=== PATIENT | male | born 1970 | race Caucasian/White ===

== ENCOUNTER 2017-09-09 11:45 | Inpatient (IN) | payer OTHER ==
[~2017-09-09] VITALS: Ht 180.3 cm; Wt 110.9 kg
[~2017-09-09 11:45] MED LIST: ASPI1TAB69 PO; CIPR250T52 PO; EMTR1TAB2 PO; HYDR-3516 PO; LISI10TA PO; MULT1TAB84 PO; VALA1TAB PO
[2017-09-09] MEDS ORDERED: ASPI1TAB57 PO (12:46)
[2017-09-09] MEDS ORDERED: CITA20TA4 PO (12:48)
[2017-09-09] MEDS ORDERED: MULTTAB67 PO (12:50)
[2017-09-09 12:52] LABS: INTERNATIONAL NORMALIZED RATIO 1.1 RATIO; PROTHROMBIN TIME - PATIENT 11.4 SEC (9.8-11.6)
[2017-09-09] MEDS ORDERED: ROSU1TAB4 PO (12:53)
[2017-09-09] MEDS ORDERED: TAMS0.4C4 PO (12:54)
[2017-09-09] MEDS ORDERED: IBUP-232 PO (12:56)
[2017-09-09] MEDS ORDERED: ZOLP12.5 PO (12:56)
[2017-09-09] MEDS ORDERED: SODIUM CHLORID 0.9% 500 ML IV PRN (13:15)
[2017-09-09] MEDS ORDERED: POVIDONE IODINE 5% (ANTISEPSIS KIT) 4 APPLICATIONS EACH NARE PRN (13:15)
[2017-09-09] MEDS ORDERED: LACTATED RINGER'S 1000 ML IV PRN (13:15)
[2017-09-09] MEDS ORDERED: METOPROLOL TARTRATE 25 MG TAB PO PRN (13:15)
[2017-09-09] MEDS ORDERED: CHLORHEXIDINE GLUCONATE 2 % 1 PACK (2 CLOTHS) TOPICAL PRN (13:15)
[2017-09-09] MEDS ORDERED: ACETAMINOPHEN 1000 MG/100 ML 100 ML IV ONE (13:23)
[2017-09-09] MEDS ORDERED: ceFAZolin 2 GM PREMIX 50 ML IV SCH (13:30)
[2017-09-09 13:44] LABS: AUTOMATED NEUTROPHIL # 3.9 TH/MM3 (1.8-7.7); BASOPHIL % 0.4 % (0.0-2.0); EOSINOPHIL # 0.1 TH/MM3 (0-0.4); HEMATOCRIT 41.5 % (39.0-51.0); HEMO FLAGS DIFF FINAL; LYMPH % 24.9 % (9.0-44.0); LYMPHOCYTE # 1.5 TH/MM3 (1.0-4.8); MEAN CELL VOLUME 98.9 FL (80.0-100.0); MEAN CORPUSCULAR HEMOGLOBIN 33.4 PG (27.0-34.0); MEAN CORPUSCULAR HGB CONC 33.8 % (32.0-36.0); MONO % 8.1 % (0.0-8.0); NEUT % 64.6 % (16.0-70.0); PLATELET COUNT 227 TH/MM3 (150-450); RED BLOOD COUNT 4.19 MIL/MM3 (4.50-5.90); RED CELL DISTRIBUTION WIDTH 13.2 % (11.6-17.2)
[2017-09-09] MEDS ORDERED: HYDROmorphone HCL PF 2 MG/ML VIAL ONE (16:38)
--- NOTE | 2017-09-09 17:28 | RADRPT ---
EXAM DATE/TIME: 09/09/2017 16:43 [place] COMPARISON: No previous studies available for comparison. INDICATIONS : Instrument count. Done in OR. MEDICAL HISTORY : HIV SURGICAL HISTORY : None. ENCOUNTER: Initial ACUITY: 1 day PAIN SCORE: Non-responsive. LOCATION: Abdomen. FINDINGS: Examination of the abdomen demonstrates a normal bowel gas pattern. No free air is identified. No o rganomegaly is evident. Osseous structures are intact. Midline skin olga are identified. No radio paque foreign bodies are noted. CONCLUSION: No evidence of radiopaque foreign body. Hernando Cervantes MD on September 09, 2017 at 17:25 Board Certified Radiologist. This report was verified electronically.
[2017-09-09] MEDS ORDERED: DO NOT ADM ANY ANTICOAGULANT DRUGS PRN (17:35)
[2017-09-09] MEDS ORDERED: *MEPERIDINE 25 MG INJ VIAL PERIprocedural Use ONLY ONE (17:37)
[2017-09-09] MEDS ORDERED: BELLADONNA ALKALOIDS/OPIUM 60 MG SUPP RECTAL PRN (17:45)
[2017-09-09 18:05] LABS: AUTOMATED NEUTROPHIL # 13.1 TH/MM3 (1.8-7.7); BASOPHIL % 0.1 % (0.0-2.0); EOSINOPHIL % 0.3 % (0.0-4.0); HEMO FLAGS DIFF FINAL; LYMPH % 11.1 % (9.0-44.0); LYMPHOCYTE # 1.7 TH/MM3 (1.0-4.8); MEAN CELL VOLUME 98.1 FL (80.0-100.0); MEAN CORPUSCULAR HEMOGLOBIN 33.5 PG (27.0-34.0); MEAN CORPUSCULAR HGB CONC 34.2 % (32.0-36.0); MONO % 4.7 % (0.0-8.0); NEUT % 83.8 % (16.0-70.0); PLATELET COUNT 227 TH/MM3 (150-450); RED BLOOD COUNT 4.08 MIL/MM3 (4.50-5.90); WHITE BLOOD COUNT 15.6 TH/MM3 (4.0-11.0)
[2017-09-09] MEDS ORDERED: *morphine SULFATE 8 MG/ML PERIprocedure ONLY ONE (18:17)
[2017-09-09 18:18] LABS: BICARBONATE 26.5 MEQ/L (21.0-32.0); POTASSIUM 3.7 MEQ/L (3.5-5.1)
[2017-09-09] MEDS: ZOLPIDEM TARTRATE 10 MG TAB PO SCH (19:39)
[2017-09-09] MEDS: DOCUSATE SODIUM 100 MG CAP PO SCH (19:39)
[2017-09-09] MEDS: ACETAMINOPHEN 1000 MG/100 ML 100 ML IV SCH (19:40)
[2017-09-09] MEDS: TAMSULOSIN HCL 0.4 MG CAP PO SCH (19:40)
[2017-09-09] MEDS: SODIUM CHLOR 0.9% 1000 ML INJ 1,000 ML IV SCH (19:41)
[2017-09-09 20:00] VITALS: BP 117/60; PULSE 64; RESP 18; TEMP 97; O2SAT 96
[2017-09-09] MEDS: MORPHINE SULFATE 2 MG/ML INJ IV PRN (23:12)
[2017-09-10] VITALS (7 sets, daily range): BP systolic 115–145; BP diastolic 68–88; PULSE 60–70; RESP 16–20; TEMP 97.3–99; O2SAT 94–96
[2017-09-10] MEDS: ACETAMINOPHEN 1000 MG/100 ML 100 ML IV SCH ×2 (01:59→10:39)
[2017-09-10] MEDS: SODIUM CHLOR 0.9% 1000 ML INJ 1,000 ML IV SCH ×4 (03:00→22:30)
[2017-09-10] MEDS: MORPHINE SULFATE 2 MG/ML INJ IV PRN ×2 (06:42→10:37)
--- NOTE | 2017-09-10 07:34 | MP ---
cc: YENNY VASQUEZ MD DATE OF SURGERY 09/09/2017 PREOPERATIVE DIAGNOSIS 1. History of low grade bladder cancer. 2. Bladder cystotomy. 3. 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 HIV POSTOPERATIVE DIAGNOSIS 1. History of low grade bladder cancer. 2. Bladder cystotomy. 3. 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 HIV PROCEDURE PERFORMED Open partial cystectomy with closure of bladder cystotomy. SURGEON Yenny Vasquez MD H[employer]ER Tommy Cm MD ANESTHESIA General COMPLICATIONS None PREOPERATIVE ANTIBIOTICS Ancef 2 gm IV DRAINS 18-Sinhala Carvajal catheter to gravity drainage SPECIMEN Bladder tissue x3 for permanent BLOOD LOSS 150 mL FLUIDS 600 crystalloids. DISPOSITION Stable to recovery. INDICATION The patient is a 47-year-old HIV positive male with a history of low grade bladder cancer. He has had persistent lower urinary tract system sinus symptoms since initial TURBT approximately a year ago. It had subsequently resulted in a colovesical fistula that was repaired. However, he continued to have lower urinary tract symptoms following the colovesical fistula repair. Lugol's cystoscopy was performed which showed abnormal amount of tissue on the anterior portion of his bladder. He started to produce large bladder stones. A cystogram was performed which showed a small leakage in the anterior portion of the bladder. A CT of the pelvis with and without contrast ruled out any colovesical fistula, but did continue to see contrast extravasation in the extra vesicle space. With these findings he was then set up for partial cystectomy and closure of bladder cystotomy. After the risks, benefits and alternatives were explained to the patient, the patient elected to proceed. Informed consent was obtained. DETAILS OF THE PROCEDURE The patient was properly identified and brought back to the operating room and was laid supine on the operating table. A proper time-out was performed under the direction of anesthesiology. The patient was then induced under general aesthetic. Preop antibiotics in form of Ancef 2 grams IV were given four hours prior to the start of the procedure. The patient was then prepped and draped in a normal sterile surgical fashion. An EZ flush Carvajal catheter was then placed under sterile technique. Clear yellow urine returned. At this time, a vertical incision was made from his up to his umbilicus using an 11-blade scalpel. Electrocautery was then used to go down to the level of the fascia. The fascia was then carefully divided to gain access to the peritoneum. Using Metzenbaum scissors, I then entered the peritoneal cavity. There were some anterior abdominal adhesions which were swept off bluntly with my finger. I then opened up the perineum down to the level bladder. The anterior portion of the bladder was quite stuck to the intra-abdominal wall and to the pubic bone. Using Metzenbaum scissors, I then carefully peeled off the anterior portion of the bladder from the abdominal wall, however in doing so, I did enter the bladder itself. At this time, the bladder was then carefully mobilized laterally and anterior. There were several hard firm portions of tissue attached to the bladder. These were carefully removed from the bladder and sent off for permanent. It appeared that the anterior bladder wall had fused to the periosteum and it was very thin. We then were then able to remove some of this abnormal bladder tissue from the anterior portion of the bladder wall. I then peeled the bladder and some of the prostate off of the pubic symphysis. At this time, all edges appeared to be clean. I was then able to close the bladder in one layer horizontally by clam-shelling it with a 2-0 Vicryl. The bladder was then irrigated and there was a small leak on the anterior portion of the bladder. This was closed with interrupted 2-0 [id number]. Again, the bladder was tested and it appeared to be watertight. Hemostasis was adequate. The bladder appeared to be intact. No other defects were seen. At this time, the incision was then closed with a running looped PDS and reapproximated with 3-0 Vicryl and 4-0 Monocryl. This concluded the procedure. The patient was extubated and sent to recovery in stable condition to be transferred to the floor for routine postoperative care. I recommend leaving the Carvajal catheter in for a minimum of two weeks with a cystogram prior to removal. Sponge and needle counts were correct at the end of the case. MD GIOVANA Lal/ANA /4:56 PM /7:05 AM SHAHRAM
[2017-09-10] MEDS ORDERED: ATORVASTATIN 10 MG TAB PO SCH (09:00)
[2017-09-10] MEDS ORDERED: EMTRICITABINE RILPIVIRINE TENOFOVIR ALAFENAM PO SCH (09:00)
[2017-09-10] MEDS: CITALOPRAM HYDROBROMIDE 20 MG TAB PO SCH (10:37)
[2017-09-10] MEDS: valACYclovir HCL 500 MG TAB PO SCH (10:37)
[2017-09-10] MEDS: MULTIVITAMIN TAB PO SCH (10:37)
[2017-09-10] MEDS: DOCUSATE SODIUM 100 MG CAP PO SCH ×2 (10:38→22:28)
[2017-09-10] MEDS ORDERED: oxyCODONE/ACETAMINOPHEN 5 MG/325 MG TAB PO PRN (12:30)
--- NOTE | 2017-09-10 12:32 | HHI.PR ---
Subjective Patient symptoms today having incisional pain, not well controlled. Ambulated. tolerating clears. Denies flatus, fevers, chest pain, trouble breathing. Objective Vital Signs Vital Signs Date Time Temp Pulse Resp B/P (MAP) Pulse Ox O2 Delivery O2 Flow Rate FiO2 09/10/17 09:38 94 Nasal Cannula 2.00 09/10/17 08:00 99.0 70 18 142/81 (101) 94 09/10/17 05:50 18 09/10/17 04:00 97.3 60 18 115/69 (84) 95 09/10/17 00:00 98.6 70 18 117/68 (84) 95 09/09/17 23:17 20 09/09/17 20:00 97.0 64 18 117/60 (79) 96 09/09/17 19:40 94 Nasal Cannula 2.00 09/09/17 18:30 98.3 63 18 118/62 (80) 94 Nasal Cannula 2 09/09/17 18:15 65 20 120/62 (81) 94 Nasal Cannula 2 09/09/17 18:00 60 15 111/61 (78) 95 Nasal Cannula 2 09/09/17 17:45 66 21 117/67 (84) 94 Nasal Cannula 2 09/09/17 17:31 98.1 62 20 123/68 (86) 93 Nasal Cannula 2 09/09/17 12:58 98.6 62 18 138/75 (96) 97 Intake & Output 09/10/17 09/10/17 06:59 18:59 Intake Total 1660 ml Output Total 600 ml Balance 1060 ml Intake Oral 360 ml IV Total 1300 ml Output Urine Total 600 ml # Bowel Movements 0 Result Diagram: 09/09/17 17509/09/171749 Objective Remarks NAD. A/O x 3 RRR non-labored respirations abd soft, ND. appropriate tenderness at midline incision. Dressing dry Soliz clear, yellow Ext NT. no c/c/e. Medications and IVs Current Medications Medications (Trade) Dose Ordered Sig/Kole Route Start Time Stop Time Status Last Admin (Colace) 100 mg BID PO 09/09/17 21:00 09/10/17 10:38 Acetaminophen 100 ml @ 400 mls/hr Q6H IV 09/09/17 14:00 09/10/17 10:39 (Roxicodone) 10 mg Q4H PRN PO 09/09/17 17:00 09/10/17 04:50 (Roxicodone) 5 mg Q4H PRN PO 09/09/17 17:00 (Morphine Inj) 4 mg Q3H PRN IV 09/09/17 18:30 09/10/17 10:37 (CeleXA) 20 mg DAILY PO 09/10/17 09:00 09/10/17 10:37 (Flomax) 0.4 mg HS PO 09/09/17 21:00 09/09/17 19:40 (Valtrex) 1,000 mg DAILY PO 09/10/17 09:00 09/10/17 10:37 Patient Own Medication PT OWN MED: (Emtricitabine-Rilpi... DAILY PO 09/10/17 09:00 Future Hold (Theragran) 1 tab DAILY PO 09/10/17 09:00 09/10/17 10:37 (Lipitor) 10 mg MoWeFr PO 09/10/17 09:00 09/10/17 10:37 (Ambien) 10 mg HS PO 09/09/17 21:00 09/09/17 19:39 (B & O Supp) 60 mg Q6H PRN RECTAL 09/09/17 17:45 Miscellaneous Information ALL NURSING DEPARTME... UNSCH PRN .XX 09/09/17 17:35 09/10/17 17:34 Sodium Chloride 1,000 ml @ 125 mls/hr Q8H IV 09/09/17 19:00 09/10/17 10:39 Assessment and Plan Assessment and Plan POD#1 s/p Partial Cystectomy -adjust pain meds -ambulate, IS -DVT, GI prophylaxis -Continue soliz catheter minimum 14 days. Will do cystogram prior to removal -possible d/c tomorrow Estuardo Vasquez MD Sep 10, 2017 12:32
[2017-09-10] MEDS: KETOROLAC TROMETHAMINE 30 MG/ML (IVP) VIAL IV PUSH SCH ×3 (14:14→22:30)
[2017-09-10] MEDS: oxyCODONE/ACETAMINOPHEN 5 MG/325 MG TAB PO PRN ×2 (17:12→22:27)
[2017-09-10] MEDS: ZOLPIDEM TARTRATE 10 MG TAB PO SCH (22:28)
[2017-09-10] MEDS: TAMSULOSIN HCL 0.4 MG CAP PO SCH (22:28)
[2017-09-11] VITALS: BP 133/80; PULSE 59; RESP 20; TEMP 98.6; O2SAT 94
[2017-09-11] MEDS: KETOROLAC TROMETHAMINE 30 MG/ML (IVP) VIAL IV PUSH SCH (04:41)
[2017-09-11] MEDS: oxyCODONE/ACETAMINOPHEN 5 MG/325 MG TAB PO PRN ×2 (04:45→12:25)
[2017-09-11] MEDS: SODIUM CHLOR 0.9% 1000 ML INJ 1,000 ML IV SCH (04:45)
[2017-09-11 08:00] VITALS: BP 140/82; PULSE 57; RESP 19; TEMP 98; O2SAT 95
[2017-09-11] MEDS: valACYclovir HCL 500 MG TAB PO SCH (08:09)
[2017-09-11] MEDS: CITALOPRAM HYDROBROMIDE 20 MG TAB PO SCH (08:09)
[2017-09-11] MEDS: MULTIVITAMIN TAB PO SCH (08:09)
[2017-09-11] MEDS: DOCUSATE SODIUM 100 MG CAP PO SCH (08:09)
[2017-09-11 08:26] LABS: BICARBONATE 23.4 MEQ/L (21.0-32.0); POTASSIUM 3.6 MEQ/L (3.5-5.1)
[2017-09-11] MEDS ORDERED: KETOROLAC TROMETHAMINE 30 MG/ML (IVP) VIAL IV PUSH PRN (08:45)
--- NOTE | 2017-09-11 08:48 | HHI.PR ---
Subjective Patient symptoms today feeling better. pain well controlled. Passed flatus. c/o rash on right side. also heartburn. Denies CP/SOB/F. tolerating regular diet. Objective Vital Signs Vital Signs Date Time Temp Pulse Resp B/P (MAP) Pulse Ox O2 Delivery O2 Flow Rate FiO2 09/11/17 00:00 98.6 59 20 133/80 (97) 94 09/10/17 20:00 97.7 67 20 129/74 (92) 94 09/10/17 16:00 97.9 66 18 145/88 (107) 96 09/10/17 12:00 97.9 60 16 126/79 (95) 96 09/10/17 09:38 94 Nasal Cannula 2.00 Intake & Output 09/11/17 09/11/17 07:00 19:00 Intake Total 2360 ml Output Total 400 ml Balance 1960 ml Intake Oral 360 ml IV Total 2000 ml Output Urine Total 400 ml # Bowel Movements 0 Result Diagram: 09/09/17 17509/11/17640 Objective Remarks NAD. A/O x 3 RRR non-labored respirations abd soft, ND. appropriate tenderness at midline incision. incision c/d/i Carvajal dark, garima, draining. Ext NT. no c/c/e. Medications and IVs Current Medications Medications (Trade) Dose Ordered Sig/Kole Route Start Time Stop Time Status Last Admin (Colace) 100 mg BID PO 09/09/17 21:00 09/11/17 08:09 (Morphine Inj) 4 mg Q3H PRN IV 09/09/17 18:30 09/10/17 10:37 (CeleXA) 20 mg DAILY PO 09/10/17 09:00 09/11/17 08:09 (Flomax) 0.4 mg HS PO 09/09/17 21:00 09/10/17 22:28 (Valtrex) 1,000 mg DAILY PO 09/10/17 09:00 09/11/17 08:09 Patient Own Medication PT OWN MED: (Emtricitabine-Rilpi... DAILY PO 09/10/17 09:00 Future Hold (Theragran) 1 tab DAILY PO 09/10/17 09:00 09/11/17 08:09 (Lipitor) 10 mg MoWeFr PO 09/10/17 09:00 09/10/17 10:37 (Ambien) 10 mg HS PO 09/09/17 21:00 09/10/17 22:28 (B & O Supp) 60 mg Q6H PRN RECTAL 09/09/17 17:45 Sodium Chloride 1,000 ml @ 125 mls/hr Q8H IV 09/09/17 19:00 09/11/17 04:45 (Toradol Inj) 30 mg Q6HR IV PUSH 09/10/17 12:30 09/15/17 12:29 09/11/17 04:41 (Percocet 5-325 Mg) 2 tab Q4H PRN PO 09/10/17 12:30 09/11/17 04:45 (Percocet 5-325 Mg) 1 tab Q4H PRN PO 09/10/17 12:30 (Protonix) 40 mg DAILY PO 09/11/17 09:00 Assessment and Plan Assessment and Plan POD#2 s/p Partial Cystectomy -Hep Lock -GI/DVT prophylaxis -Benadryl -Ambulate, IS -possible d/c this afternoon Estuardo Vasquez MD Sep 11, 2017 08:48
[2017-09-11] MEDS ORDERED: OXYC1TAB63 PO ×2 (08:52→08:53)
[2017-09-11] MEDS ORDERED: PANT40TA3 PO (08:52)
[2017-09-11] MEDS ORDERED: DOCU1CAP39 PO (08:52)
[2017-09-11] MEDS ORDERED: CIPR-9 PO (08:53)
[2017-09-11] MEDS ORDERED: PANTOPRAZOLE SOD 40 MG DELAYED RELEASE TAB PO SCH (09:00)
[2017-09-11] MEDS ORDERED: diphenhydrAMINE HCL 25 MG CAP PO PRN (09:00)
[2017-09-11 12:00] VITALS: BP 150/90; PULSE 62; RESP 20; TEMP 97.1; O2SAT 95
--- NOTE | 2017-09-13 13:46 | HHI.DS ---
Discharge Summary Admission Date Sep 10, 2017 at 14:13 Discharge Date: Sep 11, 2017 Admitting Diagnosis Bladder Cancer, Bladder cystotomy Procedures Partial Cystectomy CBC/BMP: 09/09/17 1750 09/11/17 0641 Significant Findings Laboratory Tests Test 09/11/17 06:41 Random Glucose 114 MG/DL (74-106) Calcium Level 8.1 MG/DL (8.5-10.1) Chloride Level 110 MEQ/L (98-107) Hospital Course 47 yo HIV male with h/o low grade bladder cancer was admitted following a open partial cystectomy. His hospital course was uncomplicated. His pain was well controlled. He developed a rash on his back, which was attributed to the linens. He was discharged home on POD #2 with sol[address] catheter in place. Pt Condition on Discharge: Good Discharge Disposition: Discharge Home Discharge Instructions DIET: Follow Instructions for: As Tolerated, No Restrictions Activities you can perform: Shower Only-No Bath Activities to avoid: Strenuous Activity Additional Activity Instructio: Take benadryl over the counter for itching as needed New Medications: Ciprofloxacin (Cipro) 500 Mg Tab 500 MG PO BID for Infection for 7 Days, #14 TAB 0 Refills Docusate Sodium (Dok) 100 Mg Cap 100 MG PO BID for Constipation for 14 Days, #28 CAP Oxycodone HCl/Acetaminophen (Oxycodone-Acetaminophen 5-325) 5 Mg-325 Mg Tablet 1 TAB PO Q4H PRN for PAIN SCALE 4 TO 6 for 7 Days, #42 TAB Oxycodone HCl/Acetaminophen (Oxycodone-Acetaminophen 5-325) 5 Mg-325 Mg Tablet 2 TAB PO Q4H PRN for PAIN SCALE 7 TO 10 for 10 Days, #60 TAB Pantoprazole (Pantoprazole) 40 Mg Tab 40 MG PO DAILY for Reflux for 14 Days, #14 TAB Continued Medications: Aspirin DR (Aspirin 81) 81 Mg Tabdr 81 MG PO MoWeFr, TAB 0 Refills Citalopram (Citalopram) 20 Mg Tab 20 MG PO DAILY for Control Depression, #30 TAB 0 Refills Pvvgtlumeipqq-Ohptbczxbqf-Wsqufjhwk Alafenam (Odefsey) 200-200-25 Mg Tab 1 TAB PO DAILY for Mgmt Viral Infection, #30 TAB 0 Refills Ibuprofen (Ibuprofen) 600 Mg Tab 600 MG PO BID PRN for PAIN 1 TO 10 AND/OR AGITATION, TAB 0 Refills Multiple Vitamin (Multiple Vitamin) 1 Tab 1 TAB PO DAILY for Nutritional Supplement, TAB 0 Refills Rosuvastatin (Rosuvastatin) 5 Mg Tab 5 MG PO MoWeFr for Cholesterol Management, #30 TAB 0 Refills Tamsulosin (Tamsulosin) 0.4 Mg Cap 0.4 MG PO HS for Manage Prostate Problems, #30 CAP 0 Refills Valacyclovir (Valacyclovir) 1 Gm Tab 1000 MG PO DAILY for Mgmt Viral Infection, #30 TAB 0 Refills Zolpidem ER (Zolpidem ER) 12.5 Mg Tab 12.5 MG PO HS, TAB 0 Refills Estuardo Vasquez MD Sep 13, 2017 13:46
== END 2017-09-11 15:37 | disposition home or self-care (01) | DRG 655 ==
LOC: HSDC 11:45 → EDSTATUS 13:30 → HSDI 16:39 → INTOOBSV 16:39 → N07B 18:57 → OBSVTOIN 09-10 14:13
PROVIDERS: ADMIT Urology; ATTEND Urology
PROC: 0TQB0ZZ Repair Bladder, Open Approach (ICD-10-PCS; 2017-09-09)
PROC: 0T9B70Z Drainage of Bladder with Drainage Device, Via Natural or Artificial Opening (ICD-10-PCS; 2017-09-09)
PROC: 0TBB0ZZ Excision of Bladder, Open Approach (ICD-10-PCS; principal; 2017-09-09 14:53)
DX: N99.89 Other postprocedural complications and disorders of genitourinary system (principal); N21.0 Calculus in bladder; R21 Rash and other nonspecific skin eruption; Z85.51 Personal history of malignant neoplasm of bladder; Z21 Asymptomatic human immunodeficiency virus [HIV] infection status
CPT/HCPCS: 74000; 80048; 85025; 85610; 86850; 86900; 86901; 86920; 88307; 94150; J0131; J0690; J1170; J1885; J2175; J2270; J7030; J7120